=== PATIENT | female | born 1955 | race Two or more races ===

== ENCOUNTER 2025-02-06 19:46 | Emergency (ER) | payer OTHER, MEDICAID ==
[~2025-02-06] VITALS: Ht 152.4 cm; Wt 65.8 kg
[2025-02-06 22:28] VITALS: BP 120/61; TEMP 98; O2SAT 98
== END 2025-02-06 22:34 | disposition home or self-care (01) ==
LOC: ER 19:51
DX: G89.18 Other acute postprocedural pain (principal); M25.532 Pain in left wrist; E11.9 Type 2 diabetes mellitus without complications
CPT/HCPCS: 73110